=== PATIENT | female | born 1930 | race Caucasian/White ===

== ENCOUNTER → 2016-05-18 | Outpatient (CLI) | payer MEDICARE ==
[2016-05-18 13:24] LABS: DNA INTERPRETATION FOR CTD AN SEE FOOTNOTE
[2016-05-18 13:28] LABS: BASOPHILS % (AUTO) 0 % (0-10); EOSINOPHILS # (AUTO) 0.2 10^3/uL (0.0-0.3); EOSINOPHILS % (AUTO) 4 % (0-10); LYMPHOCYTES # (AUTO) 1.2 X 10^3 (1.0-4.0); LYMPHOCYTES % (AUTO) 25 % (12-44); MEAN CORPUSCULAR HEMOGLOBIN 34 PG (25-34); MEAN CORPUSCULAR HGB CONC 34 G/DL (32-36); MEAN CORPUSCULAR VOLUME 100 FL (80-99); MONOCYTES # (AUTO) 0.7 X 10^3 (0.0-1.0); MONOCYTES % (AUTO) 14 % (0-12); NEUTROPHILS # (AUTO) 2.8 X 10^3 (1.8-7.8); NEUTROPHILS % (AUTO) 56 % (42-75); PLATELET COUNT 506 10^3/uL (130-400); RED BLOOD COUNT 2.75 10^6/uL (4.35-5.85); RED CELL DISTRIBUTION WIDTH 14.4 % (10.0-14.5)
[2016-05-18 13:54] LABS: ALANINE AMINOTRANSFERASE 13 U/L (0-55); ANION GAP 11 MMOL/L (5-14); ASPARTATE AMINO TRANSFERASE 34 U/L (5-34); BILIRUBIN,TOTAL 0.3 MG/DL (0.1-1.0); BLOOD UREA NITROGEN 11 MG/DL (7-18); BUN/CREATININE RATIO 18; CARBON DIOXIDE 24 MMOL/L (21-32); CHLORIDE 106 MMOL/L (98-107); CREATINE KINASE 56 U/L (29-168); CREATININE SERUM 0.62 MG/DL (0.60-1.30); GFR ESTIMATED > 60; GLUCOSE 87 MG/DL (70-105); POTASSIUM 4.2 MMOL/L (3.6-5.0); SODIUM 141 MMOL/L (135-145); TOTAL PROTEIN 6.8 G/DL (6.4-8.2)
[2016-05-18 14:16] LABS: THYROID STIMULATING HORMONE 0.21 UIU/ML (0.35-4.94)
[2016-05-19 08:27] LABS: C3 COMPLEMENT SERUM 170 MG/DL (73-183); C4 COMPLEMENT SERUM 23 MG/DL (15-59)
[2016-05-22 07:51] LABS: ALDOLASE 6.2 U/L (1.5-8.1)
[2016-05-22 09:40] LABS: ANTI RIBONUCLEAR PROTEIN <20 EU/ML (<20); ANTI SMITH ANTIBODY <20 EU/ML (<20); SJOGRENS SSA ANTIBODIES <20 EU/ML (<20)
[2016-05-22 09:41] LABS: JO 1 ANTIBODY <20 EU/ML (<20); SCLERODERMA ANTIBODY <20 EU/ML (<20); SJOGRENS SSB ANTIBODIES <20 EU/ML (<20)
[2016-05-22 09:42] LABS: ANTI DNA DOUBLE STRANDED ABY 22 IU/ML (0-300); ENA SCREEN Negative (Negative)
== END ==
LOC: LAB 12:43
PROVIDERS: ATTEND Psychiatry & Neurology Neurology
DX: R47.1 Dysarthria and anarthria (principal); R13.10 Dysphagia, unspecified
CPT/HCPCS: 36415; 80053; 82085; 82550; 82607; 84439; 84443; 85025; 86038; 86160; 86225; 86235

== ENCOUNTER → 2016-07-06 | Outpatient (CLI) | payer MEDICARE | LOC: LAB 11:27 | PROVIDERS: ATTEND Psychiatry & Neurology Neurology | DX: R47.1 Dysarthria and anarthria (principal); R13.10 Dysphagia, unspecified ==